=== PATIENT | male | born 1965 | race Caucasian/White ===

== ENCOUNTER → 2017-05-13 | Outpatient (CLI) | payer OTHER ==
--- NOTE | 2017-05-13 10:48 | US ---
HISTORY: Left testicular swelling for 1 week. Previous crush injury to left testicle in 1987. Left scrotal surgery in [id number] with removal of epididymis Study: Scrotal ultrasound: Multiplanar ultrasonographic examination of the scrotum and its contents was performed Comparison: None Findings: On the images submitted to fl the testicles are of normal echogenicity and echotexture. Both show va scular flow. There are asymmetric in size. Right testicle: 5.5 cm in length by 3.0 x 3.6 cm. A moderate-size right-sided hydrocele is noted. The epididymis appears normal. Left testicle: 4.2 cm in length by 3.3 x 3.1 cm. The left epididymis is been removed. There is a v shelly large hydrocele noted there appears to be partially septated. The hydrocele in its main portion measures 5.5 cm in width with a smaller area measuring 3.3 cm in width. IMPRESSION: 1. Intrinsically the testicles appear normal with regards to echogenicity , echotexture and vascular flow. 2. The left epididymis as been removed. 3. Bilateral hydroceles, left much larger than right. Reported By:
== END ==
LOC: RAD 08:25
DX: N50.89 Other specified disorders of the male genital organs (principal)
CPT/HCPCS: 76870